=== PATIENT | male | born 2000 | race Caucasian/White ===

== ENCOUNTER 2019-06-27 01:37 | Emergency (ER) | payer OTHER ==
[~2019-06-27] VITALS: Ht 180.3 cm; Wt 106.9 kg
[2019-06-27] MEDS ORDERED: MIDAZOLAM INJ 2 MG/2 ML VIAL (J2250) IV ONE (01:45)
[2019-06-27] MEDS ORDERED: LIDO5DIS41 TD (01:48)
[2019-06-27] MEDS ORDERED: NS 1,000 ML IV ONE (02:15)
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
[2019-06-27] MEDS ORDERED: KETOROLAC 30 MG/ML VIAL (J1885) IV ONE (03:00)
[2019-06-27] MEDS ORDERED: MORPHINE 2 MG/ML 1ML VIAL (J2270) IV ONE (03:15)
[2019-06-27 05:30] VITALS: BP 149/67
== END 2019-06-27 06:12 | disposition home or self-care (01) ==
LOC: M ED 01:37
DX: S02.2XXA Fracture of nasal bones, initial encounter for closed fracture (principal); Y04.0XXA Assault by unarmed brawl or fight, initial encounter; F10.120 Alcohol abuse with intoxication, uncomplicated
CPT/HCPCS: 36415; 70450; 70486; 96361; 96374; 96375; 99285; G0480; J1885; J2250; J2270

== ENCOUNTER 2020-01-19 14:00 | Emergency (ER) | payer OTHER ==
[~2020-01-19] VITALS: Ht 180.3 cm; Wt 114.3 kg
[~2020-01-19 14:00] MED LIST: LIDO5DIS41 TD
[2020-01-19 14:01] VITALS: BP 148/68
[2020-01-19] MEDS ORDERED: GI COCKTAIL 50ML BTL(HYOSCYAMINE/MAALOX/LIDOCAINE VISCOUS)(1:3:1) PO ONE (16:45)
[2020-01-19] MEDS ORDERED: PROT1TAB2 PO (16:56)
== END 2020-01-19 17:06 | disposition home or self-care (01) ==
LOC: M ED 14:00
DX: K21.9 Gastro-esophageal reflux disease without esophagitis (principal); Z79.899 Other long term (current) drug therapy